=== PATIENT | female | born 1990 | race Caucasian/White ===

== ENCOUNTER → 2016-08-01 | Outpatient (CLI) | payer OTHER ==
[2016-08-01 11:35] LABS: BASO % 0.2 % (0.0-1.0); EOS # 0.1 K/mm3 (0.0-0.50); EOS % 1.3 % (0.0-3.0); LARGE UNSTAINED CELL # 0.1 K/mm3 (0.0-0.4); LARGE UNSTAINED CELL % 0.6 % (0.0-4.0); LYMPH # 1.6 K/mm3 (1.5-6.5); LYMPH % 16.3 % (24.0-44.0); MEAN CORPUSCULAR HEMOGLOBIN 19.1 pg (27.0-33.0); MEAN CORPUSCULAR HGB CONC 28.7 g/dl (32.0-36.5); MEAN CORPUSCULAR VOLUME 66.5 fl (80.0-96.0); MONO # 0.4 K/mm3 (0.0-0.8); MONO % 3.7 % (0.0-5.0); NEUTROPHILS # 7.7 K/mm3 (1.8-7.7); NEUTROPHILS % 77.9 % (36.0-66.0); PLATELET COUNT, AUTOMATED 249 k/mm3 (150-450); RED CELL DISTRIBUTION WIDTH 17.6 % (11.5-14.5); WHITE BLOOD COUNT 9.8 K/mm3 (4.0-10.0)
[2016-08-01 11:37] LABS: ADD MORPHOLOGY? YES
[2016-08-01 12:12] LABS: ANISOCYTOSIS 1+; HYPOCHROMASIA 3+; MICROCYTOSIS 3+
[2016-08-01 12:13] LABS: TEAR DROP CELLS 1+
== END ==
LOC: M LRY 08:33
PROVIDERS: ATTEND Specialist
DX: Z34.82 Encounter for supervision of other normal pregnancy, second trimester (principal)

== ENCOUNTER 2016-08-16 09:03 | Outpatient (CLI) | payer OTHER ==
[~2016-08-16] VITALS: Ht 153.7 cm; Wt 82.1 kg
[2016-08-16] MEDS ORDERED: NS IV ONE (09:30)
[2016-08-16] MEDS ORDERED: IRON SUCROSE IV ONE (09:30)
[2016-08-16] MEDS ORDERED: IRON SUCROSE 25 MG in NS 50 ML IV ONE (09:30)
[2016-08-16] MEDS ORDERED: PRENTAB40 PO (10:56)
== END 2016-08-16 13:15 | disposition home or self-care (01) ==
LOC: M INFU 09:03
PROVIDERS: ATTEND Specialist
DX: O99.012 Anemia complicating pregnancy, second trimester (principal); D64.9 Anemia, unspecified; O26.893 Other specified pregnancy related conditions, third trimester; R11.0 Nausea; R42 Dizziness and giddiness; Z3A.29 29 weeks gestation of pregnancy
CPT/HCPCS: 59025; 96365; 96366; J1756

== ENCOUNTER 2016-08-16 13:18 | Outpatient (CLI) | payer OTHER ==
[~2016-08-16] VITALS: Ht 154.9 cm; Wt 78.0 kg
[~2016-08-16 13:18] MED LIST: PRENTAB40 PO
[2016-08-16 13:38] VITALS: BP 98/49
[2016-08-16] MEDS ORDERED: LR 1,000 ML IV SCH (15:00)
[2016-08-16] MEDS ORDERED: diphenhydrAMINE 25 MG CAP PO ONE (15:00)
[2016-08-16] MEDS ORDERED: LACTATED RINGER'S 1000 ML IV ONE (15:00)
== END 2016-08-16 16:10 | disposition home or self-care (01) ==
LOC: M LDO 13:18
PROVIDERS: ATTEND Advanced Practice Midwife
DX: O26.893 Other specified pregnancy related conditions, third trimester (principal); R11.0 Nausea; R42 Dizziness and giddiness; Z3A.29 29 weeks gestation of pregnancy

== ENCOUNTER → 2016-09-11 | Outpatient (CLI) | payer OTHER ==
[2016-09-11 12:58] LABS: MEAN CORPUSCULAR HEMOGLOBIN 22.9 pg (27.0-33.0); MEAN CORPUSCULAR HGB CONC 30.2 g/dl (32.0-36.5); RED CELL DISTRIBUTION WIDTH 23.3 % (11.5-14.5); WHITE BLOOD COUNT 6.1 K/mm3 (4.0-10.0)
== END ==
LOC: M LAB 11:00
PROVIDERS: ATTEND Obstetrics & Gynecology
DX: O99.013 Anemia complicating pregnancy, third trimester (principal); Z3A.00 Weeks of gestation of pregnancy not specified

== ENCOUNTER → 2016-10-03 | Outpatient (REF) | payer OTHER ==
[~2016-10-03] MED LIST changes: +FERR325T3 PO
== END ==
LOC: M LAB REF 13:44
PROVIDERS: ATTEND Advanced Practice Midwife
DX: Z34.83 Encounter for supervision of other normal pregnancy, third trimester (principal)

== ENCOUNTER 2016-10-05 18:18 | Outpatient (CLI) | payer OTHER ==
[~2016-10-05] VITALS: Ht 152.4 cm; Wt 85.0 kg
[~2016-10-05 18:18] MED LIST changes: -FERR325T3 PO
[2016-10-05] MEDS ORDERED: FERR325T3 PO (18:27)
[2016-10-05 18:36] VITALS: BP 118/72
== END 2016-10-05 19:30 | disposition home or self-care (01) ==
LOC: M LDO 18:18
PROVIDERS: ATTEND Obstetrics & Gynecology
DX: O26.893 Other specified pregnancy related conditions, third trimester (principal); Z3A.35 35 weeks gestation of pregnancy

== ENCOUNTER → 2016-10-10 | Outpatient (CLI) | payer OTHER ==
[~2016-10-10] MED LIST changes: +FERR325T3 PO
--- NOTE | 2016-10-10 15:16 | REP ---
Obstetric CT for size, date discrepancy. The position is not described by the technologist work sheet, however, appears to be a vertex presentation on the images provided. The placenta is posterior without previa. The amniotic fluid volume subjectively is normal. The amniotic fluid index is 12.1 (7.8 - 24.9). The heart rate is 131 beats per minute. By today's measurements the gestational age is 35 weeks 4 days with an CINDY of 11/10/2016. Gestational age by the first ultrasound during this this gestation is not recorded on the worksheet today, however, the worksheet for prior study of 06/18/2016 indicates that the the CINDY is 11/07/2016 . On the first ultrasound during this gestation. On the study today the weight is 2767 grams (6 pounds, 1 ounce). This is the 53rd percentile for 35 weeks 4 days. Umbilical artery Doppler assessment: S/D ratio 2.43 (2.30-3.30) Resistive Index 0.59 (0.59-0.75 Diastolic Velocity 47.6 (>10 cm/sec) Signed by Bill Monsalve MD 10/10/2016 03:07 P
== END ==
LOC: M SMT 13:38
PROVIDERS: ATTEND Advanced Practice Midwife
DX: O26.843 Uterine size-date discrepancy, third trimester (principal); Z3A.35 35 weeks gestation of pregnancy

== ENCOUNTER 2016-11-01 03:54 | Inpatient (IN) | payer OTHER ==
[2016-11-01] VITALS (28 sets, daily range): BP systolic 102–141; BP diastolic 61–97
[~2016-11-01] VITALS: Ht 154.9 cm; Wt 80.0 kg
[2016-11-01] MEDS ORDERED: LR 1,000 ML IV SCH (04:15)
[2016-11-01] MEDS ORDERED: LACTATED RINGER'S 1000 ML IV STA (04:15)
[2016-11-01 04:45] LABS: MEAN CORPUSCULAR HGB CONC 31.6 g/dl (32.0-36.5); MEAN CORPUSCULAR VOLUME 72.9 fl (80.0-96.0); RED CELL DISTRIBUTION WIDTH 18.5 % (11.5-14.5)
[2016-11-01] MEDS ORDERED: OXYTOCIN 30 UNITS IN 0.9% NaCl 500ML IV BAG (J2590) As Ordered ONE (04:58)
[2016-11-01] MEDS ORDERED: FENTANYL 2MCG/ML ROPIVACAINE 0.2% IN 0.9% NACL 200ML IVBAG As Ordered ONE (04:59)
--- NOTE | 2016-11-01 05:36 | HPE ---
DATE OF ADMISSION: 11/01/2016 HISTORY: A 26-year-old 4, para 3 female at 39 and 1/7 weeks gestation by seven week ultrasound, estimated date of confinement (EDC) of 11/07/2016, describing contractions every 3-5 minutes for the last several hours that became more intense. She denies vaginal bleeding. COURSE: The patient initiated care at [facility]. She transferred to [facility] at 25 weeks gestation, 07/30/2016. She has a history of significant anemia during . She received an iron infusion; however, had to stop senior living through the infusion due to adverse reaction. Hemoglobin was as high as 9.0 grams/dL on most recent check. She had abnormal glucose tolerance test of 153. She was unable to complete three-hour glucose tolerance test due to vomiting. She tested sugars and all testing was within normal limits. OBSTETRICAL HISTORY: 1. 2007, 40-week vaginal delivery of 7 pound 3 ounce male . 2. 2008, 38 and 4/7 weeks vaginal delivery of 7 pound 4 ounce female . 3. January 2014, 38 week vaginal delivery of 7 pound 7 ounce female . was complicated by hemorrhage. MEDICAL HISTORY: Noncontributory. SURGICAL HISTORY: Tonsillectomy. ALLERGIES: None. SOCIAL HISTORY: The patient is . She lives at [place]. Denies cigarettes, alcohol or drug use. FAMILY HISTORY: Noncontributory. PHYSICAL EXAMINATION: VITAL SIGNS: Blood pressure 134/82. She appears uncomfortable. HEAD/NECK: Normal. LUNGS: Clear. HEART: Regular rate and rhythm. ABDOMEN: Nontender. Gravid. heart tones category one. STERILE VAGINAL EXAM: 6-7 cm, 100% effaced, -1 station, bulging membranes, vertex. EXTREMITIES: Nontender. LABORATORY DATA: Blood type AB positive. Rubella immune. RPR nonreactive. Hepatitis B and C negative. GBS negative 10/03/2016. ASSESSMENT: A 26-year-old 4, para 3 female at 39 and 1/7 weeks gestation, who presents in active labor. The patient is admitted on 11/01/2016.
[2016-11-01] MEDS ORDERED: RHOGAM 300 MCG (1500 IU) INJ (J2790) IM SCH (07:45)
[2016-11-01] MEDS ORDERED: MEASLES,MUMPS,RUBELLA VACCINE INJ (MMR-II) (90707) SC SCH (07:45)
[2016-11-01] MEDS ORDERED: DIBUCAINE 1% OINTMENT 30GM TOP PRN (07:45)
[2016-11-01] MEDS ORDERED: OXYTOCIN DRIP 30 UNITS in APPROPRIATE DILUENT 1 EA IV ONE (07:45)
[2016-11-01] MEDS ORDERED: DOCUSATE SODIUM 100 MG CAP PO PRN (07:45)
[2016-11-01] MEDS ORDERED: METHYLERGONOVINE MALEATE 0.2 MG TAB PO PRN (07:45)
[2016-11-01] MEDS ORDERED: diphenhydrAMINE INJ 50MG/ML VIAL (J1200) IV PRN (08:00)
[2016-11-01] MEDS ORDERED: LACTATED RINGER'S 1000 ML IV PRN (08:00)
[2016-11-01] MEDS ORDERED: ePHEDrine SULFATE 25 MG/5 ML(5MG/ML) SYRINGE IV PRN (08:00)
[2016-11-01] MEDS ORDERED: EPIDURAL/PCA KEYS XX PRN (08:00)
[2016-11-01] MEDS ORDERED: FENTANYL/ROPIVACAINE/NACL BAG 200 ML EPIDURAL SCH (08:00)
[2016-11-01] MEDS ORDERED: NALOXONE INJ 0.4 MG/1 ML VIAL (J2310) IV PRN (08:00)
[2016-11-01] MEDS ORDERED: REFRIGERATOR IV KEYS XX PRN (08:00)
[2016-11-01] MEDS ORDERED: EPIDURAL COMMENT XX SCH (08:00)
[2016-11-01] MEDS ORDERED: ONDANSETRON 4MG/2ML VIAL (J2405) IV PRN (08:00)
--- NOTE | 2016-11-01 09:04 | DN ---
DATE: 11/01/2016 PREDELIVERY DIAGNOSIS: 39+ weeks, labor. POSTDELIVERY DIAGNOSIS: Delivered. PROCEDURE: Spontaneous vaginal delivery. [employer]: Dr. Juice Dubose. ANESTHESIA: Epidural. ESTIMATED BLOOD LOSS: 300 mL. FINDINGS: A 7 pound, 1 ounce male with scores of 8 and 9. DELIVERY SUMMARY: After a short second phase, the patient had spontaneous delivery of a 7 pound, 1 ounce male infant with scores of 8 and 9 under epidural anesthesia. Tight nuchal cord times one was clamped and cut on the perineum. Shoulders delivered spontaneously with ease. The infant cried spontaneously and was handed to the mother. The placenta delivered spontaneously and appeared to be intact. The patient received IV pitocin immediately after delivery of the placenta. No vaginal lacerations were present. Sponge counts were correct.
[2016-11-01] MEDS: ACETAMINOPHEN 500 MG TAB PO PRN ×2 (11:59→17:55)
[2016-11-01] MEDS: IBUPROFEN 800 MG TAB PO PRN ×2 (12:00→20:18)
[2016-11-01] MEDS: PRENATAL VITAMIN TAB PO SCH (12:00)
[2016-11-02 07:02] VITALS: BP 120/71
[2016-11-02] MEDS: PRENATAL VITAMIN TAB PO SCH (07:37)
[2016-11-02] MEDS ORDERED: ACET50TA PO (16:35)
[2016-11-02] MEDS ORDERED: IBUP-1114 PO (16:35)
== END 2016-11-02 18:00 | disposition home or self-care (01) | DRG 775 ==
LOC: M LDO 03:54 → M LDI 04:14 → M OBS 12:22
PROVIDERS: ADMIT Specialist; ATTEND Specialist
PROC: 10E0XZZ Delivery of Products of Conception, External Approach (ICD-10-PCS; principal; 2016-11-01)
DX: O80 Encounter for full-term uncomplicated delivery (principal); Z37.0 Single live birth; Z3A.39 39 weeks gestation of pregnancy

== ENCOUNTER → 2017-05-16 | Outpatient (CLI) | payer OTHER ==
[~2017-05-16] MED LIST changes: +ACET50TA PO; +IBUP-1114 PO
[2017-05-16 18:08] LABS: BASO % 0.1 % (0.0-1.0); EOS # 0.1 10^3/uL (0.0-0.50); EOS % 1.9 % (0.0-3.0); IMMATURE GRANULOCYTE % 0.3 % (0-0); LYMPH # 2.6 10^3/uL (1.5-6.5); LYMPH % 36.5 % (24.0-44.0); MEAN CORPUSCULAR HEMOGLOBIN 26.4 pg (27.0-33.0); MEAN CORPUSCULAR HGB CONC 31.5 g/dl (32.0-36.5); MEAN CORPUSCULAR VOLUME 83.9 fl (80.0-96.0); MONO # 0.5 10^3/uL (0.0-0.8); MONO % 7.2 % (0.0-5.0); NEUTROPHILS # 3.8 10^3/uL (1.8-7.7); PLATELET COUNT, AUTOMATED 327 10^3/uL (150-450); RED CELL DISTRIBUTION WIDTH 13.3 % (11.5-14.5)
[2017-05-16 18:26] LABS: FREE T4 0.86 NG/DL (0.76-1.46)
== END ==
LOC: M SMT 14:22
PROVIDERS: ATTEND Family Medicine
DX: F41.1 Generalized anxiety disorder (principal)